=== PATIENT | female | born 1990 | race Hispanic/Latino ===

== ENCOUNTER 2021-12-17 15:50 | Emergency (ER) | payer BC, MEDICAID ==
[2021-12-17 17:43] LABS: Bilirubin Neg (Negative); Blood, Urine Negative (Negative); Clarity Clear (Clear); Glucose, Urine (Dipstick) Normal (Negative); Ketone, Urine Negative (Negative); Leukocyte Negative (Negative); Nitrite Negative (Negative); Protein, Urine (Dipstick) Negative (Neg-Trace); Urobilinogen Normal mg/dL (Less than 2); pH, Urine 6.5 (5.0-9.0)
== END 2021-12-17 18:16 | disposition home or self-care (01) ==
LOC: CSHERS 15:50
DX: O99.891 Other specified diseases and conditions complicating pregnancy (principal); M79.89 Other specified soft tissue disorders; Z3A.38 38 weeks gestation of pregnancy
CPT/HCPCS: 81003; 99283

== ENCOUNTER 2022-01-04 10:29 | Inpatient (IN) | payer BC, OTHER ==
[2022-01-03 11:17] LABS: #Basophils 0.1 10x3/uL (0.0-0.2); #Eosinphils 0.2 10x3/uL (0.0-0.5); #Monocytes 0.9 10x3/uL (0.0-1.1); #Neutrophils 8.3 10x3/uL (1.5-8.4); %Basophils 0.6 % (0.0-2.0); %Eosinophils 1.4 % (0.0-6.0); %Lymphocytes 19.3 % (18.0-47.0); %Monocytes 7.4 % (0.0-10.0); %Neutrophils 67.1 % (40.0-75.0); Hemoglobin 12.8 g/dL (12.0-15.5); Mean Corpuscular HGB CONC 34.4 g/dL (32.0-36.0); Mean Corpuscular Hemoglobin 31.2 pg (27.0-33.0); Mean Corpuscular Volume 90.7 fl (81.6-98.3); Mean Platelet Volume 10.8 fl (7.4-10.4); Platelet Count 288 10x3/uL (150-450); RBC Distribution Width 13.3 % (11.5-14.5); White Blood Cell (WBC) Count 12.3 10x3/uL (3.5-10.5)
[2022-01-03 11:44] LABS: SARS-CoV-2 NAA Rapid Test Not Detected (NotDetected)
[2022-01-03 11:50] LABS: Hep B Surf Ag Non-Reactive S/CO (NonReactive)
[2022-01-03 11:51] LABS: Syphilis Antibody Nonreactive (Nonreactive); Syphilis Antibody Index 0.02 S/CO (<1.00 Non-Reactive)
[~2022-01-04 10:29] MED LIST: Bicitra 30 ML UDCUP PO PRN; CEFAZOLIN 2 GM in Sodium Chloride 0.9% 100 ML IVPB SCH; Famotidine/PF 20 mg/2ml Vial SLOW IVP PRN; Lactated Ringer's 1,000 ML IV SCH; Ondansetron PF 4 MG/2 ML Vial IVP PRN; Promethazine HCl 25 MG/ML VIAL IM PRN; hydrALAZINE 20 MG/ML VIAL SLOW IVP PRN
[2022-01-04] MEDS ORDERED: Ondansetron PF 4 MG/2 ML Vial ONE (10:35)
[2022-01-04] MEDS ORDERED: ePHEDrine Sulfate 50 MG/10 ML VIAL ONE (10:35)
[2022-01-04] MEDS ORDERED: Morphine PF 10 MG/10 ML VIAL ONE (10:35)
[2022-01-04] MEDS ORDERED: PHENYLEPHRINE-NS 100 MCG/ML 10 ML SYRINGE ONE (10:35)
[2022-01-04] MEDS ORDERED: Oxytocin 10 UNITS/ML VIAL ONE (10:36)
[2022-01-04] MEDS ORDERED: Phenylephrine 40 MG/NS 250 ML 250 ML ONE (10:36)
[2022-01-04] MEDS ORDERED: Ketorolac Tromethamine 30 MG/ML VIAL ONE (10:36)
[2022-01-04 10:54] VITALS: BMI 40.8
[2022-01-04] MEDS ORDERED: Promethazine HCl 25 MG/ML VIAL IM PRN (11:23)
[2022-01-04] MEDS ORDERED: Ondansetron HCl/PF 4 MG/2 ML Vial IVP PRN (11:23)
[2022-01-04] MEDS ORDERED: Meperidine HCl/PF 25 MG/ML VIAL SLOW IVP PRN (11:23)
[2022-01-04] MEDS ORDERED: Ondansetron PF 4 MG/2 ML Vial IVP PRN (11:23)
[2022-01-04] MEDS ORDERED: Naloxone HCl 0.4 mg/ml Vial IV PRN (11:23)
[2022-01-04] MEDS ORDERED: Naloxone HCl 0.4 mg/ml Vial IVP PRN ×2 (11:23)
[2022-01-04] MEDS ORDERED: Promethazine HCl 25 MG SUPP PR PRN (11:23)
[2022-01-04] MEDS ORDERED: Fentanyl 100 MCG/2 ML VIAL SLOW IVP PRN (11:23)
[2022-01-04] MEDS ORDERED: diphenhydrAMINE 50 MG/ML VIAL IVP PRN (11:23)
[2022-01-04] MEDS ORDERED: Moisturizing Cream (Eucerin) 113 GM JAR TOP PRN (11:23)
[2022-01-04] MEDS ORDERED: Communication Order-Pharmacy FS SCH (11:30)
[2022-01-04] MEDS ORDERED: Boostrix 0.5 ML (Tdap) VIAL (>/=7 yrs of age) IM ONE (15:32)
[2022-01-04] MEDS ORDERED: Lanolin Ointment 7 GM TUBE TOP PRN (15:32)
[2022-01-04] MEDS ORDERED: hydrALAZINE 20 MG/ML VIAL SLOW IVP PRN (15:32)
[2022-01-04] MEDS ORDERED: Bisacodyl 10 MG SUPP PR PRN (15:32)
[2022-01-04] MEDS: Ferrous Sulfate 325 MG TAB PO SCH (19:05)
[2022-01-04] MEDS ORDERED: Ketorolac Tromethamine 30 MG/ML VIAL IVP PRN (19:20)
[2022-01-04] MEDS ORDERED: Ketorolac Tromethamine 30 MG/ML VIAL IVP SCH (19:20)
[2022-01-04] MEDS: Docusate 100 MG CAP PO SCH (21:42)
[2022-01-04] MEDS: Simethicone Chewable 80 MG TAB PO PRN (23:50)
[2022-01-05 05:39] LABS: Hemoglobin 11.5 g/dL (12.0-15.5); Mean Corpuscular HGB CONC 34.3 g/dL (32.0-36.0); Mean Corpuscular Hemoglobin 31.3 pg (27.0-33.0); Mean Platelet Volume 10.9 fl (7.4-10.4); Platelet Count 269 10x3/uL (150-450); RBC Distribution Width 13.3 % (11.5-14.5); Red Blood Cell (RBC) Count 3.68 10x6/uL (3.90-5.03); White Blood Cell (WBC) Count 12.5 10x3/uL (3.5-10.5)
[2022-01-05] MEDS: Docusate 100 MG CAP PO SCH ×2 (08:29→22:18)
[2022-01-05] MEDS: Prenatal Vitamin 1 TAB PO SCH (08:29)
[2022-01-05] MEDS: HYDROcodone/Acetaminophen 5/325 mg Tablet PO PRN ×4 (09:04→23:41)
[2022-01-05] MEDS: Ferrous Sulfate 325 MG TAB PO SCH ×2 (10:11→22:17)
[2022-01-05] MEDS: Simethicone Chewable 80 MG TAB PO PRN (22:18)
[2022-01-05] MEDS: Ibuprofen 800 MG TAB PO SCH (22:18)
[2022-01-06] MEDS: Simethicone Chewable 80 MG TAB PO PRN (06:00)
[2022-01-06] MEDS: Ibuprofen 800 MG TAB PO SCH ×2 (06:00→14:18)
[2022-01-06 07:37] VITALS: BP 108/51; TEMP 97.8
[2022-01-06] MEDS: Docusate 100 MG CAP PO SCH (07:55)
[2022-01-06] MEDS: Prenatal Vitamin 1 TAB PO SCH (07:55)
[2022-01-06] MEDS: HYDROcodone/Acetaminophen 5/325 mg Tablet PO PRN (08:15)
[2022-01-06] MEDS: Ferrous Sulfate 325 MG TAB PO SCH (09:22)
[2022-01-10] MEDS ORDERED: Ibuprofen 800 MG TAB PO SCH (20:00)
== END 2022-01-06 15:55 | disposition home or self-care (01) | DRG 788 ==
LOC: CSHLD 10:29 → CSHPP 15:31
PROVIDERS: ADMIT Obstetrics & Gynecology; ATTEND Obstetrics & Gynecology
PROC: 10D00Z1 Extraction of Products of Conception, Low, Open Approach (ICD-10-PCS; principal; 2022-01-04)
PROC: 0UB90ZZ Excision of Uterus, Open Approach (ICD-10-PCS; 2022-01-04)
DX: O34.211 Maternal care for low transverse scar from previous cesarean delivery (principal); Z3A.39 39 weeks gestation of pregnancy; Z37.0 Single live birth; Z20.822 Contact with and (suspected) exposure to COVID-19; O34.13 Maternal care for benign tumor of corpus uteri, third trimester; D25.9 Leiomyoma of uterus, unspecified
CPT/HCPCS: 36415; 51702; 85025; 85027; 86780; 86850; 86900; 86901; 87340; J1885; J2274; J2405; J2590; J3490; S0028; U0002

== ENCOUNTER 2022-01-14 13:27 | Emergency (ER) | payer BC, OTHER | END 2022-01-14 14:10 | disposition home or self-care (01) | LOC: CSHERS 13:27 | DX: O90.0 Disruption of cesarean delivery wound (principal) | CPT/HCPCS: 99283 ==

== ENCOUNTER 2022-02-01 08:50 | Outpatient (CLI) | payer BC, OTHER | END 2022-02-01 08:51 | disposition home or self-care (01) | LOC: CSHWCC 08:50 | PROVIDERS: ATTEND Nurse Practitioner Family | DX: T81.89XD Other complications of procedures, not elsewhere classified, subsequent encounter (principal) | CPT/HCPCS: 99203; G0463 ==

== ENCOUNTER 2022-02-22 08:38 | Outpatient (CLI) | payer BC, OTHER | END 2022-02-22 08:39 | disposition home or self-care (01) | LOC: CSHWCC 08:38 | PROVIDERS: ATTEND Nurse Practitioner Family | DX: T81.89XD Other complications of procedures, not elsewhere classified, subsequent encounter (principal) | CPT/HCPCS: 99212; G0463 ==